=== PATIENT | female | born 1965 | race Caucasian/White ===

== ENCOUNTER 2021-06-13 06:50 | Inpatient (IN) | payer OTHER ==
[~2021-06-13 06:50] MED LIST: ZYRTEC10 M3 PO
== END 2021-06-14 17:26 | disposition home or self-care (01) | DRG 581 ==
LOC: CIR.AMB 06:50 → LAB 13:11 → SURH 14:28 → O/R 14:28 → SURH 14:35
PROVIDERS: ADMIT Specialist; ATTEND Specialist
PROC: 0HBT0ZZ Excision of Right Breast, Open Approach (ICD-10-PCS; 2021-06-13)
PROC: 07T50ZZ Resection of Right Axillary Lymphatic, Open Approach (ICD-10-PCS; principal; 2021-06-13 09:45)
DX: D05.11 Intraductal carcinoma in situ of right breast (principal); Z20.822 Contact with and (suspected) exposure to COVID-19

== ENCOUNTER 2021-07-08 07:46 | Outpatient (CLI) | payer OTHER | END 2021-07-08 07:47 | disposition home or self-care (01) | LOC: NUCLEAR 07:46 | PROVIDERS: ATTEND Internal Medicine Hematology & Oncology | DX: C50.411 Malignant neoplasm of upper-outer quadrant of right female breast (principal) ==